=== PATIENT | male | born 1985 | race Caucasian/White ===

== ENCOUNTER 2023-05-30 14:03 | Emergency (ER) | payer SELFPAY ==
[2023-05-30 14:08] VITALS: BP 137/90; PULSE 113; RESP 15; TEMP 36.8; O2SAT 98; BMI 22.8
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
[2023-05-30] MEDS: TET,DIPH,PERTUSS(ACELL),VAC/PF 0.5 ML SYRINGE IM (14:31)
== END 2023-05-30 15:00 | disposition home or self-care (01) ==
PROVIDERS: Emergency Provider Student in an Organized Health Care Education/Training Program
DX: S01.81XA Laceration without foreign body of other part of head, initial encounter (principal); S09.90XA Unspecified injury of head, initial encounter; V89.2XXA Person injured in unspecified motor-vehicle accident, traffic, initial encounter; Z23 Encounter for immunization
CPT/HCPCS: 90471; 99283; 90715